=== PATIENT | female | born 1975 | race Caucasian/White ===

== ENCOUNTER 2023-01-11 08:00 | Outpatient (CLI) | payer BC, SELFPAY | END 2023-01-11 08:01 | disposition home or self-care (01) | LOC: NFLDREF 01-13 07:59 | PROVIDERS: PCP Family Medicine; Referring Provider Family Medicine; Visit Provider Family Medicine | DX: Z01.419 Encounter for gynecological examination (general) (routine) without abnormal findings (principal); E78.5 Hyperlipidemia, unspecified | CPT/HCPCS: 80053; 80061 ==

== ENCOUNTER 2023-01-25 09:38 | Outpatient (CLI) | payer BC, SELFPAY ==
--- NOTE | 2023-01-25 10:00 | CRLHL7_ITS ---
For Patients: As a result of the Century Cures Act, medical imaging exams and procedure reports are released immediately into your electronic medical record. You may view this report before your referring provider. If you have questions, please contact your health care provider. Indication: family history of ischemic heart disease Technique: Post contrast CT chest. 95 cc Isovue 370 intravenous contrast. Please note that all CT scans at this facility use dose modulation, iterative reconstruction, and/or weight-based dosing when appropriate to reduce radiation dose to as low as reasonably achievable. Comparison: None Findings: There is no pulmonary embolism within the main, lobar or segmental pulmonary arteries. No aortic aneurysm or dissection. Normal tricuspid aortic valve. No cardiomegaly. Lungs clear. No infiltrate, edema, effusion or pneumothorax. No pulmonary nodule. No fracture. Normal kidneys. Breast tissue appears normal. Normal spleen and pancreas. Normal adrenal glands. Small stones in the gallbladder. Hypodense lesions within the liver measuring 5.3 cm posteriorly and 6.9 cm inferiorly. No adenopathy. Impression: No pulmonary embolism or aortic dissection. Cholelithiasis. Hypodense masses within the liver incompletely evaluated, which are likely cavernous hemangiomas, measuring up to 6.9 cm. MRI of the liver with and without contrast recommended for further evaluation. Please note that all CT scans at this facility use dose modulation, iterative reconstruction, and/or weight-based dosing when appropriate to reduce radiation dose to as low as reasonably achievable. Dictated by Lakhwinder Sampson MD @ 01/29/2023 10:27:17 AM (Electronically Signed)
== END 2023-01-25 09:39 | disposition home or self-care (01) ==
LOC: CT 09:39
PROVIDERS: PCP Family Medicine; Visit Provider Family Medicine
DX: Z82.49 Family history of ischemic heart disease and other diseases of the circulatory system (principal); K80.20 Calculus of gallbladder without cholecystitis without obstruction; R16.0 Hepatomegaly, not elsewhere classified
CPT/HCPCS: 71275; Q9967

== ENCOUNTER 2023-02-15 12:54 | Outpatient (CLI) | payer BC, SELFPAY ==
--- NOTE | 2023-02-15 13:00 | CRLHL7_ITS ---
For Patients: As a result of the Century Cures Act, medical imaging exams and procedure reports are released immediately into your electronic medical record. You may view this report before your referring provider. If you have questions, please contact your health care provider. INDICATION: Liver lesions. COMPARISON: CT angio chest with intravenous contrast January 25, 2023. Technique: Precontrast T1 and T2 weighted imaging; T2 haste imaging; diffusion weighted imaging; in and out of phase imaging; postcontrast imaging including subtraction ; 20 cc of dotarem contrast was injected. FINDINGS: A 7.6 x 6.7 x 5.4 cm cavernous hemangioma segment 5 of the liver. A 5.3 x 3 x 5 cm cavernous hemangioma segment 7 of the liver. Cholelithiasis. No focal hepatic or splenic pathology. No pancreatic pathology. No adrenal pathology. Small cortical cysts both kidneys. No retroperitoneal lymphadenopathy. No evidence of abdominal ascites. IMPRESSION: 1. Giant cavernous hemangiomas involving segments 5 and 7 of the liver; does not need any further followup. 2. Cholelithiasis. 3. Cortical cysts both kidneys. Dictated by Nga Hair MD @ 02/24/2023 1:09:03 PM (Electronically Signed)
== END 2023-02-15 12:55 | disposition home or self-care (01) ==
LOC: MRI 12:55
PROVIDERS: PCP Family Medicine; Visit Provider Family Medicine
DX: K76.9 Liver disease, unspecified (principal); K80.20 Calculus of gallbladder without cholecystitis without obstruction; N28.1 Cyst of kidney, acquired; Z82.49 Family history of ischemic heart disease and other diseases of the circulatory system
CPT/HCPCS: 74183; A9575

== ENCOUNTER 2023-02-22 09:07 | Outpatient (CLI) | payer BC, SELFPAY ==
--- NOTE | 2023-02-22 09:52 | W.ANESCHARGE ---
Anesthesia Charges Start Date/Time Anesthesia Start Date: 02/22/23 Anesthesia Start Time: 09:49 Stop Date/Time Anesthesia Stop Date: 02/22/23 Anesthesia Stop Time: 10:12
--- NOTE | 2023-02-22 10:16 | W.ANESCHARGE ---
Anesthesia Charges Start Date/Time Anesthesia Start Date: 02/22/23 Anesthesia Start Time: 09:49 Stop Date/Time Anesthesia Stop Date: 02/22/23 Anesthesia Stop Time: 10:12
== END 2023-02-22 09:08 | disposition home or self-care (01) ==
LOC: OP CLINIC 09:07
PROVIDERS: PCP Family Medicine; Visit Provider Internal Medicine
DX: Z12.11 Encounter for screening for malignant neoplasm of colon (principal)
CPT/HCPCS: 45378; 811; 812; J2704

== ENCOUNTER 2023-02-23 07:45 | Emergency (ER) | payer BC, SELFPAY ==
[2023-02-23 07:52] VITALS: BP 118/106; PULSE 81; RESP 18; TEMP 36.4; O2SAT 98
--- NOTE | 2023-02-23 08:04 | ED.ABDPAIN ---
HPI - Abdominal Pain General Time Seen by Provider: 08:04 Date Seen: 02/23/23 Chief Complaint: Abdominal Pain Stated Complaint: stomach pain -post colonoscopy Time Seen by Provider: 02/23/23 08:03 Source: patient and RN notes reviewed Mode of arrival: ambulatory Limitations: no limitations History of Present Illness HPI narrative: Renetta is a 47-year-old female coming in with epigastric and right upper quadrant pain that started last evening with known underlying cholelithiasis in the setting of a colonoscopy yesterday. She had a CT a couple weeks ago done for routine screening of aortic aneurysm and family history of dissection. She was found to have incidental cholelithiasis. She did see our surgeon Dr. Chavez in the in room as she has been having episodes of right upper quadrant pain and does have some pain into her back. She states she is also convinced that she has reflux as she will get regurgitant symptoms. When she met with the surgeon, they recommended a trial of a proton pump inhibitor which she has been taking and does feel though symptoms are better. When she left the colonoscopy yesterday, she had no pain. Last night she has started to get increased severe epigastric to right upper quadrant pain that has kept her up all night. She has had 2 episodes of emesis. She felt warm at 1 point but did not take her temperature. She really has not had any bowel output as she had a colonoscopy yesterday. She is indoor these spells in the past, would usually does wait for them to go away. Often times should wait overnight, have some coffee in the morning and then have a bowel movement and feel better. She also has a liver lesion that was found incidentally on the CT, likely to be a hemangioma but is recommended for MRI which has not been done but is scheduled. Per the surgeon's note, she did not feel that patient would be a good candidate for laparoscopic cholecystectomy here due to this liver lesion. She discussed in her note that she would probably refer her to [place] for this surgery if it needed to happen. MD elicited complaint: abdominal pain Related Data Home Medications Medication Instructions Recorded Confirmed cyanocobalamin (vitamin B-12) 1,000 mcg PO DAILY 01/17/23 02/13/23 1,000 mcg tablet folic acid 400 mcg tablet 400 mcg PO DAILY 01/17/23 02/13/23 multivitamin (Multiple Vitamins 1 tab PO QDAY 01/17/23 02/13/23 tablet) Previous Rx's Medication Instructions Recorded dextroamphetamine-amphetamine 5 mg 5 mg PO BID #60 tabs 02/08/23 tablet (Adderall) peg 3350-electrolytes 236 240 ml PO ONCE #4,000 mL 02/18/23 gram-22.74 gram-6.74 gram-5.86 gram solution (Golytely) Allergies Allergy/AdvReac Type Severity Reaction Status Date / Time No Known Drug Allergies Allergy Unverified 02/13/23 09:50 Review of Systems Status of ROS Reports: 6 or more systems reviewed and unremarkable except as noted in History and below [facility] Medical History Family history of aortic dissection ?Z82.49 - Family history of ischemic heart disease and other diseases of the circulatory system (ICD-10) Vegetarian ?Z78.9 - Other specified health status (ICD-10) 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 ?O26.21 - care for patient with recurrent loss, first trimester (ICD-10) Hyperlipidemia with target LDL less than 130 ?E78.5 - Hyperlipidemia, unspecified (ICD-10) Cervical high risk human papillomavirus (HPV) DNA test positive (2018) ?R87.810 - Cervical high risk human papillomavirus (HPV) DNA test positive (ICD-10) Chronic low back pain ?M54.50 - Low back pain, unspecified (ICD-10) ?G89.29 - Other chronic pain (ICD-10) Surgical History Hx of gynecological procedure (2017) ?Z98.890 - Other specified postprocedural states (ICD-10) History of colposcopy with cervical biopsy (2019) ?Z98.890 - Other specified postprocedural states (ICD-10) Family History Family/Other Breast cancer, Onset Age: 50 Mother Coronary artery disease Breast cancer, Onset Age: 77 Father Prostate cancer, Onset Age: 75 Sister Melanoma, Onset Age: 55 Brother Aortic dissection Lung cancer, Onset Age: 50 Brother Aortic dissection, Onset Age: 50 Social History 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 Sclera clear, conjugate gaze. Pupils are equal and round. Symmetrical facial function. Lungs are clear with good air entry, no wheezing or crackles, no tachypnea. CV regular rate and rhythm, no murmur, normal S1 and S2. Abdomen is soft, normal-sounding bowel sounds but she is tender in the right upper quadrant. I would not say that she has definitive rebound or guarding at this time. Skin without any jaundice. Patient was ambulatory in the ED of her own accord. Documenting provider has reviewed patient's vital signs: yes Course Course ED Course: Spent time discussing with this patient that we do need imaging to rule out perforation from colonoscopy but I am hopeful that this isn't the case. She does not believe that she had any biopsies or any polyp removal done. Her examination seems to be consistent with what I would be worried is biliary in nature. I do think we need to repeat the ultrasound. We discussed CT imaging but patient bagged that I not do this as she is afraid of the radiation. Thus, we will start with a flat and upright to make sure that we do not see any free air for perforation. She understands it is not as sensitive as CT. We are going to proceed with right upper quadrant ultrasound to reassess her gallbladder. We will get full complement of labs, start an IV and start some IV fluids. We will start with Toradol for pain management. She is not nauseated at this time, it has abated but we will give Zofran if it returns. If need be, will move to narcotics for pain management. Reevaluation(s) Time of Reevaluation #1: 10:32 Reevaluation #1: Reviewed with patient that her labs are reassuring, liver functions are normal, no elevation in bilirubin. White blood count is normal. There is no evidence of free air perforation on her abdomen imaging. We are waiting her ultrasound report she is requesting to leave, her pain is much improved after the Toradol. Reviewed with her I would prefer her to stay but there is a delay in imaging, she would really like to go home, states she is very agreeable to come back if I need her to. I will attempt to contact her in a timely fashion soon as I have her ultrasound report back. We will formalize the plan at that point. She does note that she has been in contact with a surgeon at [place] for her issues, she understands she may need to follow-up with them as she is not a surgical candidate for us here. Time of Reevaluation #2: 11:59 Reevaluation #2: Called and left message on patient's cellphone for her to call me back as she did not answer. Have spoken to on-call surgeon Dr. Arredondo as well. She agrees that this patient should proceed to [place] if she has recurrent or worsening symptoms. She really is not a candidate for us here. She had also reviewed the ultrasound images and ultrasound may not be accurate given that this liver lesion is within the gallbladder fossa and may actually be responsible for the ?fluid? that is seen on ultrasound. Patient and I did end up conversing over the phone. Related my discussion with Dr. Arredondo with her. We will see if medical records can copy my information to Dr. Carvajal in general surgery at [place]. She is remaining asymptomatic at this time. Did discuss if she has further episodes, increasing severity, abdominal pain with further vomiting or any fever development, she does need to proceed for further evaluation, would recommend if possible directly going to [place]. She does understand. She is also aware that if she ever felt like she was not able to get their that we obviously will see her but with the current climate of medicines that we are having difficulty transferring at times. Vital Signs Vital signs: Initial Vital Signs Temperature 97.5 F L 02/23/23 07:52 Temperature Source Temporal Artery Scan 02/23/23 07:52 Pulse Rate 81 02/23/23 07:52 Respiratory Rate 18 02/23/23 07:52 Blood Pressure 118/106 H 02/23/23 07:52 Blood Pressure Mean 110 H 02/23/23 07:52 Blood Pressure Position Sitting 02/23/23 07:52 Pulse Oximetry 98 02/23/23 07:52 Oxygen Delivery Method Room Air 02/23/23 07:52 Vital Signs Temperature 97.5 F L 02/23/23 07:52 Pulse Rate 81 02/23/23 07:52 Respiratory Rate 18 02/23/23 07:52 Blood Pressure 118/106 H 02/23/23 07:52 Pulse Oximetry 98 02/23/23 07:52 Oxygen Delivery Method Room Air 02/23/23 07:52 Temperature 97.5 F L 02/23/23 07:52 Pulse Rate 81 02/23/23 07:52 Respiratory Rate 18 02/23/23 07:52 Blood Pressure 118/106 H 02/23/23 07:52 Pulse Oximetry 98 02/23/23 07:52 Oxygen Delivery Method Room Air 02/23/23 07:52 MDM - Abdominal Pain Lab Data Attestation: I reviewed the patient's lab results. Labs: Lab Results 02/23/23 Range/Units 08:45 WBC 8.53 (4.50-11.00) K/uL RBC 4.15 (4.00-5.20) m/uL Hgb 12.0 (12.0-16.0) gm/dL Hct 35.9 (33.0-51.0) % MCV 87 (80-100) fL MCH 29 (26-34) pg MCHC 33 (32-36) gm/dL RDW Coeff of Erickson 12.4 (11.5-15.5) % Plt Count 301 (140-440) K/uL Neut % (Auto) 79.5 H (42.0-72.0) % Lymph % (Auto) 14.3 L (20-44) % Ray % (Auto) 4.1 (0.0-11.0) % Eos % (Auto) 0.9 (0.0-7.0) % Baso % (Auto) 0.5 (0.0-3.0) % Neut # (Auto) 6.80 (1.7-7.0) K/uL Lymph # (Auto) 1.20 (0.90-2.90) K/uL Ray # (Auto) 0.30 (0.00-0.90) K/UL Eos # (Auto) 0.08 (0.00-0.50) K/uL Baso # (Auto) 0.04 (0.00-0.30) K/uL Abs Immat Gran (auto) 0.06 (0.00-0.30) K/uL Imm/Tot Granulo (auto) 0.7 % Sodium 135 (135-149) mmol/L Potassium 4.0 (3.6-5.1) mmol/L Chloride 104 (96-114) mmol/L Carbon Dioxide 24 (20-32) mmol/L Anion Gap 7 (7-15) mEq/L BUN 8 (5-24) mg/dL Creatinine 0.6 (0.5-1.5) mg/dL Estimated GFR 111 ml/min Glucose 108 (60-115) mg/dL Lactate 1.2 (0.5-1.9) mmol/L Calcium 9.4 (8.4-10.6) mg/dL Total Bilirubin 0.4 (0.1-1.5) mg/dL Direct Bilirubin 0.1 (0.0-0.5) mg/dL AST 22 (12-35) U/L ALT 15 (4-35) U/L Alkaline Phosphatase 55 (40-150) U/L C-Reactive Protein 0.5 (0.5-1.0) mg/dL Total Protein 7.4 (6.0-8.3) g/dL Albumin 4.3 (3.3-5.0) g/dL Lipase 147 (23-300) U/L Imaging Data US - abdomen: Attestation: I have reviewed the pertinent imaging results. Radiologist's impression: Patient: RENETTA NIEVES Facility:?[facility] Patient ID:?[id number] :?1975 Study:?US Gallbladder -02/23/2023 10:02:14 AM Ordering Physician:Lise Wallace Final Report: INDICATION: Abdominal pain. Status post colonoscopy on 02/22/2023. Known liver hemangiomas and gallstones. COMPARISON: CT chest 01/25/2023. MRI abdomen 02/15/2023. TECHNIQUE: Ultrasound abdomen limited gallbladder with real time najera scale imaging and color Doppler analysis. FINDINGS: Gallbladder: The gallbladder is distended. Few small layering stones. No wall thickening. There is a tubular cystic structure posterior to the gallbladder which could represent a dilated cystic duct versus pericholecystic fluid. Negative sonographic Quinn sign. Bile ducts: The common bile duct measures 5 mm in diameter. IMPRESSION: 1. Distended gallbladder with cholelithiasis. No sonographic evidence of acute cholecystitis. 2. Tubular cystic structure posterior to the gallbladder could represent a dilated cystic duct versus pericholecystic fluid. No dilation of the common bile duct. Dictated by Stefanie Gutiérrez MD @ 02/23/2023 10:59:32 AM (Electronic Signature) Abdominal x-ray: Attestation: I have reviewed the pertinent imaging results. My impression: I do not appreciate any free air on this flat and upright of her abdominal x-ray. Await Radiology over-read. Radiologist's impression: Patient: RENETTA NIEVES Facility:?[facility] Patient ID:?[id number] Site Patient ID:?[id number]. Site :?[id number] Study:?XRay Abdomen flat/upright-02/23/2023 8:35:06 AM Ordering Physician:Lise Wallace Final Report: Indication: Severe abdominal pain post colonoscopy. Technique: Abdomen 2 view. Comparison: February 15, 2023. Findings: Bowel: Bowel pattern is normal. The amount of colonic stool is within normal limits. Other: No sign of free air. No sign of soft tissue mass. No suspicious calcifications. Osseous structures are unremarkable for age. Impression: Unremarkable abdomen. No finding to explain pain. Dictated by Greg Martinez MD @ 02/23/2023 9:33:22 AM (Electronic Signature) Critical Care Time Critical Care Time Critical Care Time: No Discharge Plan Discharge Clinical Impression: Cholelithiasis, Biliary colic Patient Disposition: Home, Self-Care Condition: Stable Additional Instructions: Patient was called after her ultrasound report came back and was given verbal instructions as noted above. Prescriptions: No Action dextroamphetamine-amphetamine [Adderall] 5 mg tablet 5 mg PO BID Qty: 60 0RF multivitamin [Multiple Vitamins] Tablet 1 tab PO QDAY cyanocobalamin (vitamin B-12) 1,000 mcg tablet 1,000 mcg PO DAILY folic acid 400 mcg tablet 400 mcg PO DAILY peg 3350-electrolytes [Golytely] 236-22.74-6.74 -5.86 gram recon soln 240 ml PO ONCE Qty: 4000 0RF Rx Instructions: 4pm day prior to procedure. Drink 8oz glass every 15 minutes until 1/2 of solution is gone. 6 hours prior to procedure drink 8 oz glass every 15 minutes until remaining solution gone. Follow Up/Referrals: Jennie Martinez MD [Primary Care Provider] - Stand Alone Forms: Voice Assist Info Instructions
--- NOTE | 2023-02-23 08:18 | CRLHL7_ITS ---
For Patients: As a result of the Century Cures Act, medical imaging exams and procedure reports are released immediately into your electronic medical record. You may view this report before your referring provider. If you have questions, please contact your health care provider. INDICATION: Abdominal pain. Status post colonoscopy on 02/22/2023. Known liver hemangiomas and gallstones. COMPARISON: CT chest 01/25/2023. MRI abdomen 02/15/2023. TECHNIQUE: Ultrasound abdomen limited gallbladder with real time najera scale imaging and color Doppler analysis. FINDINGS: Gallbladder: The gallbladder is distended. Few small layering stones. No wall thickening. There is a tubular cystic structure posterior to the gallbladder which could represent a dilated cystic duct versus pericholecystic fluid. Negative sonographic Quinn sign. Bile ducts: The common bile duct measures 5 mm in diameter. IMPRESSION: 1. Distended gallbladder with cholelithiasis. No sonographic evidence of acute cholecystitis. 2. Tubular cystic structure posterior to the gallbladder could represent a dilated cystic duct versus pericholecystic fluid. No dilation of the common bile duct. Dictated by Stefanie Gutiérrez MD @ 02/23/2023 10:59:32 AM (Electronically Signed)
--- NOTE | 2023-02-23 08:19 | CRLHL7_ITS ---
For Patients: As a result of the Century Cures Act, medical imaging exams and procedure reports are released immediately into your electronic medical record. You may view this report before your referring provider. If you have questions, please contact your health care provider. Indication: Severe abdominal pain post colonoscopy. Technique: Abdomen 2 view. Comparison: February 15, 2023. Findings: Bowel: Bowel pattern is normal. The amount of colonic stool is within normal limits. Other: No sign of free air. No sign of soft tissue mass. No suspicious calcifications. Osseous structures are unremarkable for age. Impression: Unremarkable abdomen. No finding to explain pain. Dictated by Greg Martinez MD @ 02/23/2023 9:33:22 AM (Electronically Signed)
[2023-02-23] MEDS: KETOROLAC 15 MG/ML inj IVP (08:43)
[2023-02-23] MEDS: 0.9 % SODIUM CHLORIDE 1000 ml 1,000 ML 500 ML IV (08:43)
[2023-02-23 08:52] LABS: Lactate* 1.2 mmol/L (0.5-1.9)
[2023-02-23 08:54] LABS: Basophils Absolute Auto 0.04 K/uL (0.00-0.30); Basophils Percent Auto 0.5 % (0.0-3.0); Eosinophils Absolute Auto 0.08 K/uL (0.00-0.50); Eosinophils Percent Auto 0.9 % (0.0-7.0); Hematocrit 35.9 % (33.0-51.0); Immature Granulocytes Abs Auto 0.06 K/uL (0.00-0.30); Immature Granulocytes Pct Auto 0.7 %; Lymphocytes Percent Auto 14.3 % (20-44); Mean Corpuscular HGB Conc 33 gm/dL (32-36); Mean Corpuscular Hemoglobin 29 pg (26-34); Mean Corpuscular Volume 87 fL (80-100); Monocytes Percent Auto 4.1 % (0.0-11.0); Neutrophils Percent Auto 79.5 % (42.0-72.0); Platelet Count* 301 K/uL (140-440); RDW Coefficient of Variation % 12.4 % (11.5-15.5); Red Blood Count 4.15 m/uL (4.00-5.20); White Blood Count* 8.53 K/uL (4.50-11.00)
[2023-02-23 09:00] LABS: Slide Review Reflex No
[2023-02-23 09:08] LABS: Albumin* 4.3 g/dL (3.3-5.0); Chloride* 104 mmol/L (96-114); Sodium* 135 mmol/L (135-149)
[2023-02-23 09:11] LABS: Anion Gap 7 mEq/L (7-15); Bilirubin Direct* 0.1 mg/dL (0.0-0.5); Bilirubin Total* 0.4 mg/dL (0.1-1.5); Carbon Dioxide* 24 mmol/L (20-32); Creatinine* 0.6 mg/dL (0.5-1.5); Estimated Glomerular Filt Rate 111 ml/min; Total Protein* 7.4 g/dL (6.0-8.3)
[2023-02-23 09:12] LABS: Alanine Aminotransferase* 15 U/L (4-35); Alkaline Phosphatase* 55 U/L (40-150); Aspartate Amino Transferase* 22 U/L (12-35); Blood Urea Nitrogen* 8 mg/dL (5-24); Calcium* 9.4 mg/dL (8.4-10.6); Glucose* 108 mg/dL (60-115); Lipase* 147 U/L (23-300)
[2023-02-23 09:14] LABS: C Reactive Protein* 0.5 mg/dL (0.5-1.0)
== END 2023-02-23 10:40 | disposition home or self-care (01) ==
PROVIDERS: Emergency Provider Family Medicine; PCP Family Medicine
DX: K80.21 Calculus of gallbladder without cholecystitis with obstruction (principal)
CPT/HCPCS: 36415; 74019; 76705; 80053; 82248; 83605; 83690; 85025; 86140; 96374; 99284; J1885; J7030

== ENCOUNTER 2023-04-12 11:28 | Outpatient (CLI) | payer BC, SELFPAY ==
--- NOTE | 2023-04-12 11:30 | CRLHL7_ITS ---
For Patients: As a result of the Century Cures Act, medical imaging exams and procedure reports are released immediately into your electronic medical record. You may view this report before your referring provider. If you have questions, please contact your health care provider. BILATERAL SCREENING MAMMOGRAM WITH COMPUTER-AIDED DETECTION AND TOMOSYNTHESIS TECHNIQUE: CC and MLO views were obtained. These mammographic images have been obtained using full-field digital technique. These mammographic images were interpreted with the benefit of computer-aided detection. Breast Tomosynthesis was used in this interpretation. COMPARISON FILM: 07/11/23, 12/17/18, 07/12/17. FINDINGS: The breasts are heterogeneously dense, which may obscure small masses IMPRESSION: There is no radiographic evidence for malignancy. ASSESSMENT: BI-RADS Category 1: Negative RECOMMENDATION: Routine screening mammogram in 1 year. A lay language report of this examination will be provided to the patient. Lakhwinder Sampson M.D. Diagnostic Radiologist [email or web address] BUTCH/Dictated by: Lakhwinder Sampson MD @ 04/12/2023 12:14:00 PM (Electronically Signed)
== END 2023-04-12 11:29 | disposition home or self-care (01) ==
LOC: MAMMO 11:29
PROVIDERS: PCP Family Medicine; Visit Provider Family Medicine
DX: Z12.31 Encounter for screening mammogram for malignant neoplasm of breast (principal); R92.2 Inconclusive mammogram
CPT/HCPCS: 77063; 77067

== ENCOUNTER 2024-09-30 09:19 | Outpatient (CLI) | payer BC, SELFPAY | END 2024-09-30 09:20 | disposition home or self-care (01) | LOC: NFLDREF 10-02 23:31 | PROVIDERS: PCP Family Medicine; Referring Provider Family Medicine; Visit Provider Family Medicine | DX: E78.5 Hyperlipidemia, unspecified (principal) | CPT/HCPCS: 80053; 80061 ==

== ENCOUNTER 2024-12-21 12:55 | Outpatient (CLI) | payer BC, SELFPAY ==
--- NOTE | 2024-12-21 13:00 | CRLHL7_ITS ---
For Patients: As a result of the Century Cures Act, medical imaging exams and procedure reports are released immediately into your electronic medical record. You may view this report before your referring provider. If you have questions, please contact your health care provider. INDICATION: BILATERAL SCREENING MAMMOGRAM, ASYMPTOMATIC 49 Y/O FEMALE COMPARISON: 04/12/2023, 07/11/2020, 12/17/2018 TECHNIQUE: Digital mammogram in CC and MLO projections including computer-aided detection (CAD) and tomosynthesis. BREAST COMPOSITION: There are scattered areas of fibroglandular density. FINDINGS: No suspicious findings. ASSESSMENT: BI-RADS 1 Negative RECOMMENDATION: Annual screening mammogram. A lay language report of this examination will be provided to the patient. Dictated by: Saritha Deras MD @ 12/24/2024 07:57:52 (Electronically Signed)
== END 2024-12-21 12:56 | disposition home or self-care (01) ==
LOC: MAMMO 12:56
PROVIDERS: PCP Family Medicine; Visit Provider Family Medicine
DX: Z12.31 Encounter for screening mammogram for malignant neoplasm of breast (principal)
CPT/HCPCS: 77063; 77067